=== PATIENT | male | born 1940 | race Caucasian/White ===

== ENCOUNTER 2017-09-25 18:11 | Emergency (ER) | payer MEDICARE ==
[~2017-09-25] VITALS: Ht 170.2 cm; Wt 72.0 kg
[2017-09-25 18:18] VITALS: BP 176/77; PULSE 80; RESP 19; TEMP 98.1; O2SAT 99
--- NOTE | 2017-09-25 18:51 | PD ---
HPI Chief Complaint: Skin Problem Time Seen by Provider: 18:24 Travel History International Travel<30 days: No Contact w/Intl Traveler<30days: No Traveled to known affect area: No History of Present Illness HPI 77-year-old male with history of hypertension presents emergency department for evaluation of painful swollen area on the left posterior elbow. Patient states he noticed it about 4 days ago. He went to the urgent care on 2 days ago where they aspirated it and started him on Keflex. He tells me he has been taking this religiously but he feels it is not getting better quickly. He feels like the elbow is more reddened and warm to touch. Denies any fever or chills. Mild pain when the area is touched but otherwise it is insignificant. Denies any alterations in range of motion. He has no other symptoms to report. Patient is here because he has become septic before from small infections and he is concerned that this will progress to that if he does not get it addressed. PFSH Past Medical History Hypertension: Yes Social History Tobacco Use: No Allergies-Medications (Allergen,Severity, Reaction): Coded Allergies: No Known Allergies (Unverified , 09/25/17) Reported Meds & Prescriptions Reported Meds & Active Scripts Active Keflex (Cephalexin) 500 Mg Cap 500 Mg PO Q6H 5 Days Naproxen 500 Mg Tab 500 Mg PO BID PRN Bactrim DS (Sulfamethoxazole-Trimethoprim) 800-160 Mg Tab 1 Tab PO BID Reported Amlodipine (Amlodipine Besylate) 5 Mg Tab 5 Mg PO DAILY Hydrochlorothiazide 25 Mg Tab 25 Mg PO DAILY Lisinopril 10 Mg Tab 10 Mg PO DAILY Review of Systems Except as stated in HPI: all other systems reviewed are Neg Physical Exam Narrative GENERAL: Well-nourished, well-developed male patient, in no acute distress SKIN: Focused skin assessment warm/dry. HEAD: Normocephalic. EYES: No scleral icterus. No injection or drainage. NECK: Supple, trachea midline. No JVD or lymphadenopathy. CARDIOVASCULAR: Regular rate and rhythm. 2/6 systolic murmur. RESPIRATORY: Breath sounds equal bilaterally. No accessory muscle use. MUSCULOSKELETAL: No cyanosis. 4 cm in diameter area of erythema and edema on the left posterior elbow. There is fluctuance. Patient can fully flex, extend , the elbow and supinate, and pronate the left forearm. Distal pulses are palpable. Cap refills within normal limits. BACK: Nontender without obvious deformity. No CVA tenderness. Data Data Last Documented VS Vital Signs Date Time Temp Pulse Resp B/P (MAP) Pulse Ox O2 Delivery O2 Flow Rate FiO2 09/25/17 19:49 09/25/17 18:54 76 18 09/25/17 18:54 97 Room Air 09/25/17 18:18 98.1 Orders Orders Elbow, Complete (4 Vws) (09/25/17 ) Abscess Culture And Gram Stain (09/25/17 18:56) Ed Discharge Order (09/25/17 19:34) MDM Medical Decision Making Medical Screen Exam Complete: Yes Emergency Medical Condition: Yes Medical Record Reviewed: Yes Differential Diagnosis Bursitis versus abscess versus septic joint Narrative Course 77-year-old male presents emergency department for evaluation of welling over the left elbow. Patient appears without distress. T physical exam is consistent with an olecranon bursitis. Needle aspiration revealed serous fluid. This is sent for evaluation. Due to erythema and warmth, patient will be started on Bactrim and the Keflex extended greater than 3 days. He is counseled on care and agrees to return immediately with acute worsening symptoms. Procedures Procedure Narrative Verbal consent obtained prior to procedure. The left elbow was prepped with Betadine. A sterile 18-gauge needle was inserted into the area of fluctuance in the posterior left elbow. 4 cc of serous fluid are aspirated and sent for culture. Patient tolerated this well. Diagnosis Primary Impression: Olecranon bursitis of left elbow Referrals: Primary Care Physician Patient Instructions: Elbow Bursitis (GEN), Elbow Bursitis Exercises (GEN), General Instructions Additional Instructions: Ice to the affected area Follow-up with the primary care provider within the next week Compression with Joe bandage may help Return immediately to the emergency department with any acute worsening symptoms Med/Other Pt SpecificInfo: Prescription(s) given Scripts Cephalexin (Keflex) 500 Mg Cap 500 MG PO Q6H for Infection for 5 Days, #20 CAP 0 Refills Prov: Christine Garrett 09/25/17 Naproxen (Naproxen) 500 Mg Tab 500 MG PO BID Y for PAIN SCALE 1 TO 10, #30 TAB 0 Refills Prov: Christine Garrett 09/25/17 Sulfamethoxazole-Trimethoprim (Bactrim DS) 800-160 Mg Tab 1 TAB PO BID for Infection, #20 TAB 0 Refills Prov: Christine Garrett 09/25/17 Disposition: 01 DISCHARGE HOME Condition: Stable Christine Garrett September 25, 2017 18:51
[2017-09-25 18:54] VITALS: BP 140/70; PULSE 77; RESP 18; O2SAT 97
[2017-09-25] MEDS ORDERED: HYDR25TA5 PO (18:59)
[2017-09-25] MEDS ORDERED: LISI10TA3 PO (18:59)
[2017-09-25] MEDS ORDERED: AMLO5TAB2 PO (18:59)
--- NOTE | 2017-09-25 19:20 | RADRPT ---
EXAM DATE/TIME: 09/25/2017 19:06 [facility] COMPARISON: No previous studies available for comparison. INDICATIONS : Left elbow pain and swelling. No prior trauma. MEDICAL HISTORY : None. SURGICAL HISTORY : None. ENCOUNTER: Initial ACUITY: 3 days PAIN SCORE: 5/10 LOCATION: Left elbow. FINDINGS: There is soft tissue swelling over the extensor surface of the elbow. No definite acute fracture or d islocation. Trace joint fluid. CONCLUSION: Soft tissue swelling on the extensor surface. Keshav Chung MD on September 25, 2017 at 19:12 Board Certified Radiologist. This report was verified electronically.
[2017-09-25] MEDS ORDERED: NAPR500T2 PO ×2 (19:36→19:41)
[2017-09-25] MEDS ORDERED: BACT800T5 PO ×2 (19:36→19:41)
[2017-09-25] MEDS ORDERED: CEPH-460 PO ×3 (19:36→19:42)
== END 2017-09-25 19:53 | disposition home or self-care (01) ==
LOC: NEPC 18:11
DX: M70.22 Olecranon bursitis, left elbow (principal); B95.61 Methicillin susceptible Staphylococcus aureus infection as the cause of diseases classified elsewhere; I10 Essential (primary) hypertension; Z79.899 Other long term (current) drug therapy
CPT/HCPCS: 20605; 73080; 86403; 87070; 87186; 87205